=== PATIENT | female | born 1975 | race Two or more races ===

== ENCOUNTER 2018-04-12 19:39 | Emergency (ER) | payer OTHER ==
[~2018-04-12] VITALS: Ht 152.4 cm; Wt 54.4 kg
[2018-04-13] MEDS ORDERED: LEVSIN/SL0.125 MG SL ×2 (04:07→04:10)
[2018-04-13] MEDS ORDERED: PEPCID40 MG PO (04:07)
[2018-04-13] MEDS ORDERED: INTESTINEX680 M1 PO ×3 (04:07→04:12)
== END 2018-04-13 04:39 | disposition home or self-care (01) ==
LOC: ER 19:39
DX: K52.9 Noninfective gastroenteritis and colitis, unspecified (principal); R10.32 Left lower quadrant pain